=== PATIENT | male | born 1985 | race Caucasian/White ===

== ENCOUNTER 2017-01-14 13:02 | Emergency (ER) | payer MEDICARE | END 2017-01-14 16:10 | disposition home or self-care (01) | LOC: ER 13:02 | DX: I75.012 Atheroembolism of left upper extremity (principal); L03.116 Cellulitis of left lower limb; F32.9 Major depressive disorder, single episode, unspecified; F17.210 Nicotine dependence, cigarettes, uncomplicated; Z87.442 Personal history of urinary calculi ==